=== PATIENT | male | born 1950 | race Native Hawaiian/Other Pacific Islander ===

== ENCOUNTER 2017-03-10 08:30 | Emergency (ER) | payer OTHER, BC ==
[~2017-03-10] VITALS: Ht 185.4 cm; Wt 97.5 kg
[~2017-03-10 08:30] MED LIST: ASPIR-LOW81 MG PO; DIOVAN HC1 PO; MEDROL DOSEPAK4 MG OR; Z-PAK PO
[2017-03-10 08:35] VITALS: TEMP 97.8
[2017-03-10 09:10] VITALS: BP 175/90
== END 2017-03-10 09:10 | disposition home or self-care (01) ==
LOC: ED 08:30
PROC: 3E1B78Z Irrigation of Ear using Irrigating Substance, Via Natural or Artificial Opening (ICD-10-PCS; principal; 2017-03-10)
DX: H92.02 Otalgia, left ear (principal); H60.592 Other noninfective acute otitis externa, left ear; H61.22 Impacted cerumen, left ear
CPT/HCPCS: 99282

== ENCOUNTER 2017-04-20 08:06 | Outpatient (CLI) | payer OTHER, BC ==
[~2017-04-20] VITALS: Ht 30.5 cm; Wt 0.5 kg
== END 2017-04-20 10:10 | disposition home or self-care (01) ==
LOC: NM 08:06
DX: I25.10 Atherosclerotic heart disease of native coronary artery without angina pectoris (principal); I44.7 Left bundle-branch block, unspecified; I10 Essential (primary) hypertension
CPT/HCPCS: A9500; J2785

== ENCOUNTER 2017-04-26 08:06 | Day surgery (SDC) | payer OTHER, BC ==
[~2017-04-26] VITALS: Ht 30.5 cm; Wt 0.5 kg
[2017-04-26 08:56] LABS: SODIUM 138 mmol/L (136-145)
[2017-04-26 09:48] LABS: PLATELET COUNT 203 K/uL (142-355)
== END 2017-04-26 11:00 | disposition home or self-care (01) ==
LOC: OR 08:06
PROVIDERS: Student in an Organized Health Care Education/Training Program
PROC: 0DB48ZZ Excision of Esophagogastric Junction, Via Natural or Artificial Opening Endoscopic (ICD-10-PCS; principal; 2017-04-26)
PROC: 0DB68ZZ Excision of Stomach, Via Natural or Artificial Opening Endoscopic (ICD-10-PCS; 2017-04-26)
DX: K29.50 Unspecified chronic gastritis without bleeding (principal); K44.9 Diaphragmatic hernia without obstruction or gangrene; K21.0 Gastro-esophageal reflux disease with esophagitis; R10.84 Generalized abdominal pain
CPT/HCPCS: 80053; 85027; J2001; J2250; J2704; J3010

== ENCOUNTER 2017-07-28 14:23 | Emergency (ER) | payer OTHER, BC ==
[~2017-07-28] VITALS: Ht 185.4 cm; Wt 99.8 kg
[2017-07-28 15:33] LABS: PLATELET COUNT 175 K/uL (142-355)
[2017-07-28 16:49] LABS: POTASSIUM 4.1 mmol/L (3.6-5.2); SODIUM 132 mmol/L (136-145)
[2017-07-29 07:10] VITALS: BP 115/65; TEMP 98.2
== END 2017-07-29 07:49 | disposition short-term general hospital (02) ==
LOC: ED 14:23
PROVIDERS: Family Medicine
DX: R42 Dizziness and giddiness (principal); R00.1 Bradycardia, unspecified; R00.0 Tachycardia, unspecified; I49.8 Other specified cardiac arrhythmias; I25.10 Atherosclerotic heart disease of native coronary artery without angina pectoris; I44.7 Left bundle-branch block, unspecified
CPT/HCPCS: 36415; 80053; 82550; 82553; 84484; 85027; 93005; 96374; 96375; 99284; J1170; J2405; J3490

== ENCOUNTER 2017-07-29 07:41 | Outpatient (CLI) | payer OTHER, BC | END 2017-07-29 08:20 | disposition short-term general hospital (02) | LOC: AMB 07:41 | DX: R42 Dizziness and giddiness (principal); R00.1 Bradycardia, unspecified; R00.0 Tachycardia, unspecified; I49.8 Other specified cardiac arrhythmias; I25.10 Atherosclerotic heart disease of native coronary artery without angina pectoris; I44.7 Left bundle-branch block, unspecified | CPT/HCPCS: A0425; A0427 ==

== ENCOUNTER 2020-07-15 12:34 | Outpatient (CLI) | payer OTHER, BC | END 2020-07-15 20:41 | disposition home or self-care (01) | LOC: RAD 12:34 | PROVIDERS: ATTEND Nurse Practitioner Family | DX: U07.1 COVID-19 (principal) ==

== ENCOUNTER 2021-12-30 19:25 | Emergency (ER) | payer OTHER, BC ==
[~2021-12-30] VITALS: Ht 182.9 cm; Wt 98.9 kg
[2021-12-30 19:59] VITALS: BP 129/60; TEMP 98.8
== END 2021-12-30 21:40 | disposition left against medical advice (07) ==
LOC: ED 19:25
DX: Z53.29 Procedure and treatment not carried out because of patient's decision for other reasons (principal)
CPT/HCPCS: 81002; 96372; 99283; J1885

== ENCOUNTER 2022-12-31 10:54 | Outpatient (CLI) | payer OTHER, BC | END 2022-12-31 19:20 | disposition home or self-care (01) | LOC: RAD 10:54 | PROVIDERS: ATTEND Nurse Practitioner | DX: M79.642 Pain in left hand (principal) ==